=== PATIENT | female | born 1965 | race Caucasian/White ===

== ENCOUNTER 2024-04-24 06:24 | Emergency (ER) | payer SELFPAY ==
[~2024-04-24] VITALS: Ht 154.9 cm; Wt 45.4 kg
[2024-04-24 06:36] VITALS: BP_SYST 124; PULSE 83; RESP 17; TEMP 96.8; O2SAT 98
[2024-04-24] MEDS: OLANZapine 10 MG TAB.RAPDIS PO STA (07:30)
[2024-04-24 07:36] LABS: BASOPHILS % (AUTO) 0.3 % (0.0-2.0); EOSINOPHILS % (AUTO) 0.2 % (0.0-4.0); HEMATOCRIT 31.1 % (36-48); HEMOGLOBIN 9.5 g/dL (12.0-16.0); LYMPHOCYTES % (AUTO) 8.7 % (20.5-51.5); MEAN CORPUSCULAR HEMOGLOBIN 22 pg (27-31); MEAN CORPUSCULAR HGB CONC 31 % (32-36); MEAN CORPUSCULAR VOLUME 71 fL (79.0-98.0); MONOCYTES # (AUTO) 0.9 K/uL (0.0-1.0); MONOCYTES % (AUTO) 7.3 % (1.7-9.3); NEUTROPHILS % (AUTO) 83.5 % (40.0-70.0); PLATELET COUNT (AUTO) 433 K/uL (130-430); RED CELL DISTRIBUTION WIDTH 18.9 % (9.0-15.0)
[2024-04-24 07:56] LABS: INFLUENZA TYPE A Negative (NEGATIVE); INFLUENZA TYPE B NEGATIVE (NEGATIVE)
[2024-04-24 07:59] LABS: ANION GAP 15 (5-15); CALCIUM 9.3 mg/dL (8.4-11.0); CARBON DIOXIDE 22 mmol/L (23-29); CHLORIDE 100 mmol/L (98-107); CREATININE 1.08 mg/dL (0.55-1.30); GFR AFRICAN AMERICAN 67 mL/min (>90); GLUCOSE 58 mg/dL (74-106); POTASSIUM 3.3 mmol/L (3.5-5.1); SODIUM SERUM 137 mmol/L (136-145); UREA NITROGEN, BLOOD 20 mg/dL (8-21)
[2024-04-24 08:16] LABS: GFR NON AFRICAN-AMERICAN 55 mL/min (>90)
[2024-04-24] MEDS: ACETAMINOPHEN 500 MG TABLET PO ONE (08:16)
[2024-04-24] MEDS: KETOROLAC TROMETHAMINE 30 MG VIAL IM ONE (08:20)
[2024-04-24 10:13] VITALS: BP_SYST 124; PULSE 83; RESP 17; TEMP 96.8; O2SAT 98
== END 2024-04-24 10:04 | disposition home or self-care (01) ==
LOC: SED 06:24
DX: R53.1 Weakness (principal); D64.89 Other specified anemias; Z20.822 Contact with and (suspected) exposure to COVID-19; F15.10 Other stimulant abuse, uncomplicated; E16.1 Other hypoglycemia; G24.01 Drug induced subacute dyskinesia; I10 Essential (primary) hypertension; Z59.00 Homelessness unspecified
CPT/HCPCS: 99285; 71045; 80048; 83880; 85025; 84484; 36415; 93005; 96372; 82948; 87804 ×2; 87426; J1885

== ENCOUNTER 2024-05-01 00:45 | Emergency (ER) | payer SELFPAY ==
[~2024-05-01] VITALS: Ht 154.9 cm; Wt 63.5 kg
[2024-05-01 00:59] VITALS: BP_SYST 152; PULSE 90; RESP 18; TEMP 98.3; O2SAT 97
== END 2024-05-01 02:22 | disposition home or self-care (01) ==
LOC: SED 00:45
DX: R53.1 Weakness (principal); I10 Essential (primary) hypertension
CPT/HCPCS: 99283

== ENCOUNTER 2024-07-08 11:55 | Emergency (ER) | payer SELFPAY ==
[~2024-07-08] VITALS: Ht 154.9 cm; Wt 48.1 kg
[2024-07-08 11:59] VITALS: BP_SYST 148; PULSE 110; RESP 19; TEMP 98.2; O2SAT 95
[2024-07-08] MEDS: KETOROLAC TROMETHAMINE 60 MG/2 ML VIAL IM ONE (13:21)
[2024-07-08] MEDS ORDERED: IBUP-1969 PO (13:29)
[2024-07-08 14:07] VITALS: BP_SYST 148; PULSE 110; RESP 19; TEMP 98.2; O2SAT 95
== END 2024-07-08 14:07 | disposition home or self-care (01) ==
LOC: SED 11:55
DX: K13.79 Other lesions of oral mucosa (principal); I10 Essential (primary) hypertension; F15.10 Other stimulant abuse, uncomplicated
CPT/HCPCS: 99283; 96372; J1885

== ENCOUNTER 2024-07-22 06:46 | Emergency (ER) | payer MEDICAID ==
[~2024-07-22] VITALS: Ht 152.4 cm; Wt 49.9 kg
[~2024-07-22 06:46] MED LIST: IBUP-1969 PO
[2024-07-22 06:55] VITALS: BP_SYST 129; PULSE 82; RESP 18; TEMP 96.9; O2SAT 99
[2024-07-22] MEDS: ACETAMINOPHEN 500 MG TABLET PO ONE (07:04)
[2024-07-22 07:50] VITALS: BP_SYST 129; PULSE 82; RESP 18; TEMP 96.9; O2SAT 99
== END 2024-07-22 07:51 | disposition home or self-care (01) ==
LOC: SED 06:46
DX: R51.9 Headache, unspecified (principal); F15.90 Other stimulant use, unspecified, uncomplicated; I10 Essential (primary) hypertension; Z71.6 Tobacco abuse counseling; Z79.899 Other long term (current) drug therapy
CPT/HCPCS: 99283

== ENCOUNTER 2024-08-10 08:36 | Emergency (ER) | payer MEDICAID ==
[~2024-08-10] VITALS: Ht 152.4 cm; Wt 45.4 kg
[2024-08-10 08:39] VITALS: BP_SYST 157; PULSE 95; RESP 20; TEMP 98.3; O2SAT 98
[2024-08-10] MEDS: LORazepam 2 MG/ML VIAL IVP ONE (08:55)
[2024-08-10] MEDS: DIPHENHYDRAMINE INJ 50 MG/ML VIAL IM ONE (09:00)
[2024-08-10] MEDS: HALOPERIDOL LACTATE 5 MG/ML VIAL IM ONE (09:00)
[2024-08-10 09:41] LABS: BILIRUBIN,URINE NEGATIVE (NEGATIVE); CLARITY/URINE CLEAR (CLEAR); COLOR,URINE YELLOW (YELLOW); GLUCOSE,URINE NEGATIVE (NEGATIVE); KETONES,URINE NEGATIVE (NEGATIVE); LEUKOCYTE ESTERASE ,URINE NEGATIVE (NEGATIVE); NITRITE, URINE NEGATIVE (NEGATIVE); PROTEIN URINE 2+ (NEGATIVE)
[2024-08-10 09:45] LABS: BASOPHILS % (AUTO) 0.6 % (0.0-2.0); EOSINOPHILS # (AUTO) 0.2 K/uL (0.0-0.4); EOSINOPHILS % (AUTO) 2.4 % (0.0-4.0); HEMATOCRIT 30.8 % (36-48); HEMOGLOBIN 9.6 g/dL (12.0-16.0); LYMPHOCYTES # (AUTO) 1.5 K/uL (1.0-5.5); LYMPHOCYTES % (AUTO) 21.3 % (20.5-51.5); MEAN CORPUSCULAR HEMOGLOBIN 23 pg (27-31); MEAN CORPUSCULAR HGB CONC 31 % (32-36); MEAN CORPUSCULAR VOLUME 73 fL (79.0-98.0); MONOCYTES # (AUTO) 0.5 K/uL (0.0-1.0); MONOCYTES % (AUTO) 7.6 % (1.7-9.3); NEUTROPHILS # (AUTO) 4.7 K/uL (1.8-7.7); NEUTROPHILS % (AUTO) 68.1 % (40.0-70.0); PLATELET COUNT (AUTO) 371 K/uL (130-430); RED BLOOD CELL COUNT(AUTO) 4.21 MIL/uL (4.2-6.2); RED CELL DISTRIBUTION WIDTH 17.6 % (9.0-15.0); WHITE BLOOD COUNT (AUTO) 6.9 K/uL (4.8-10.8)
[2024-08-10 09:49] LABS: BLOOD, URINE TRACE (NEGATIVE)
[2024-08-10 09:55] LABS: BARBITURATE, URINE NEGATIVE (NEG <=200); BENZODIAZEPINE, URINE NEGATIVE (NEG <=150); CANNABINOID, URINE NEGATIVE (NEG <=50); COCAINE, URINE NEGATIVE (NEG <=150); METHAMPHETAMINES SCREEN,URINE POSITIVE (NEG <=500); OPIATE, URINE NEGATIVE (NEG <=100); PHENCYCLIDINE SCREEN,URINE NEGATIVE (NEG <=25); URINE AMPHETAMINE POSITIVE (NEG <=500); URINE METHADONE NEGATIVE (NEG <=200); URINE OXYCODONE SCREEN NEGATIVE (NEG <=100)
[2024-08-10 09:56] LABS: UR TRICYCLIC ANTIDEPRESSANTS POSITIVE (NEG <=300)
[2024-08-10 10:05] LABS: PROTHROMBIN TIME 10.9 SECS (9.5-12.5)
[2024-08-10 10:09] LABS: BACTERIA,URINE None Seen /HPF (None Seen); HYALINE CASTS, URINE 0.3 /LPF (None Seen); MUCUS,URINE 2+ /LPF (None Seen); WBC,URINE 0-3 /HPF (0-3)
[2024-08-10 10:13] LABS: ALANINE AMINOTRANSFERASE 16 U/L (12-78); ALBUMIN 3.7 g/dL (3.4-4.8); ANION GAP 11 (5-15); ASPARTATE AMINOTRANSFERASE 31 U/L (10-37); BILIRUBIN,DIRECT 0.2 mg/dL (0.0-0.3); CALCIUM 9.2 mg/dL (8.4-11.0); CARBON DIOXIDE 25 mmol/L (23-29); CHLORIDE 103 mmol/L (98-107); CREATINE KINASE, TOTAL 484 U/L (26-192); CREATININE 0.89 mg/dL (0.55-1.30); GFR AFRICAN AMERICAN 83 mL/min (>90); GLUCOSE 86 mg/dL (74-106); POTASSIUM 3.3 mmol/L (3.5-5.1); SALICYLATE 1 mg/dL (3-30); SODIUM SERUM 139 mmol/L (136-145); TOTAL BILIRUBIN 0.7 mg/dL (0.0-1.0); TOTAL PROTEIN, SERUM 7.5 g/dL (6.4-8.3); UREA NITROGEN, BLOOD 30 mg/dL (8-21)
[2024-08-10 10:14] LABS: ACETAMINOPHEN < 1 ug/mL (1-30); ALCOHOL, BLOOD < 3 mg/dL (<10); GFR NON AFRICAN-AMERICAN 69 mL/min (>90)
[2024-08-10 10:35] LABS: CKMB RELATIVE INDEX 2.1 (0.0-2.9)
[2024-08-10 12:37] VITALS: BP_SYST 143; PULSE 72; RESP 18; TEMP 98.3; O2SAT 99
== END 2024-08-10 12:38 | disposition home or self-care (01) ==
LOC: SED 08:36
DX: F19.10 Other psychoactive substance abuse, uncomplicated (principal); R41.82 Altered mental status, unspecified; R45.1 Restlessness and agitation; I10 Essential (primary) hypertension; Z79.899 Other long term (current) drug therapy
CPT/HCPCS: 99285; 96374; 70450; 80307; 80076; 80048; 81001; 82140; 82550; 82553; 85025; 85610; 85730; 84484; 36415; 93005; 81025; 83605; 82397; G0482; J2060; G0480; G0481; 81000; 81015